=== PATIENT | male | born 1940 | race Caucasian/White ===

== ENCOUNTER 2019-04-12 15:53 | Outpatient (CLI) | payer MEDICARE ==
--- NOTE | 2019-04-12 16:03 | RAD ---
2 views chest: 04/12/2019 COMPARISON: None HISTORY: Cough FINDINGS: There is eventration of the right hemidiaphragm. Heart and mediastinal contours appear sergio sly unremarkable. No pneumothorax or pleural fluid. No focal consolidation or alveolar edema. IMPRESSION: No acute findings.
== END 2019-04-12 15:54 | disposition home or self-care (01) ==
LOC: RAD-FRANK 15:53
PROVIDERS: ATTEND Nurse Practitioner Family
DX: R05 Cough (principal)
CPT/HCPCS: 71046